=== PATIENT | male | born 1955 | race Caucasian/White ===

== ENCOUNTER 2021-02-24 13:40 | Observation (INO) ==
[2021-02-24 14:11] LABS: Basophils % 0.3 %; Eosinophils # 0.3 K/mcL (0.0-0.6); Eosinophils % 3.2 %; Hematocrit 45.5 % (37.5-50.1); Hemoglobin 15.1 g/dL (12.9-16.9); Immature Granulocytes % 0.3 % (0-4); Lymphocytes # 0.8 K/mcL (0.6-4.6); Lymphocytes % 7.9 %; Mean Corpuscular HGB Conc 33.2 g/dL (31.6-35.5); Mean Corpuscular Hemoglobin 29.4 pg (28.0-33.3); Mean Corpuscular Volume 88.7 fL (83.0-100.0); Mean Platelet Volume 10.9 fL (9.4-12.4); Monocytes # 0.7 K/mcL (0.0-1.3); Monocytes % 7.5 %; Neutrophils # 7.8 K/mcL (1.6-8.9); Platelet Count 196 K/mcL (140-400); Red Blood Count 5.13 M/mcL (4.19-5.50); Red Cell Distribution Width 11.9 % (11.5-14.5); Segmented Neutrophils % 80.8 %; White Blood Count 9.7 K/mcL (4.3-11.1)
[2021-02-24 14:30] LABS: BUN/Creatinine Ratio 14 (6-26); Blood Urea Nitrogen 19 mg/dL (8-23); Calcium 8.9 mg/dL (8.6-10.3); Carbon Dioxide 23 mEq/L (23-29); Chloride 103 mEq/L (98-107); Glucose 93 mg/dL (70-105); Osmolality,Calculated 286 (280-300); Potassium 4.2 mEq/L (3.5-5.1); Sodium 137 mEq/L (136-145); Troponin I < 0.03 ng/mL (< 0.04); eGFR For African Americans > 60 (> 60); eGFR For Non-African Americans 51 (> 60)
[2021-02-24] MEDS ORDERED: Isovue-370 500 ML BOTTLE IVP ONE (14:42)
[2021-02-24] MEDS ORDERED: 0.9 % Sodium Chloride 1,000 ML IVC ONE (14:43)
[2021-02-24] MEDS ORDERED: Aspirin 325 MG TABLET PO ONE (17:44)
[2021-02-24] MEDS ORDERED: Perflutren Lipid Microsphere 1.3 ML in 0.9 % Sodium Chloride 8.7 ML IVP PRN (20:00)
[2021-02-24] MEDS ORDERED: Acetaminophen IV 1,000 MG/100 ML BAG IVPB ONE (21:58)
[2021-02-24] MEDS ORDERED: Acetaminophen 325 MG TABLET PO PRN (22:37)
[2021-02-24] MEDS ORDERED: Naloxone 0.4 MG/ML INJ IVP PRN (22:37)
[2021-02-24] MEDS ORDERED: Ondansetron 4 MG/2 ML VIAL IVP PRN (22:37)
[2021-02-24] MEDS ORDERED: SUMAtriptan succinate 25 MG TABLET PO ONE (22:47)
[2021-02-24] MEDS ORDERED: Morphine Sulfate 2 MG/ML SYRINGE IVP ONE (22:56)
[2021-02-25] MEDS ORDERED: Morphine Sulfate 2 MG/ML SYRINGE IVP PRN (00:19)
[2021-02-25 02:33] LABS: Mean Corpuscular HGB Conc 33.8 g/dL (31.6-35.5); Mean Corpuscular Hemoglobin 29.5 pg (28.0-33.3); Mean Corpuscular Volume 87.3 fL (83.0-100.0); Mean Platelet Volume 11.1 fL (9.4-12.4); Platelet Count 194 K/mcL (140-400); Red Blood Count 4.58 M/mcL (4.19-5.50); Red Cell Distribution Width 11.9 % (11.5-14.5)
[2021-02-25 02:38] LABS: Hemoglobin 13.5 g/dL (12.9-16.9)
[2021-02-25 02:43] LABS: INR 1.1; Prothrombin Time 13.1 Seconds (9.4-12.1)
[2021-02-25 02:45] LABS: Activated Partial Thrombo Time 35.4 Seconds (26.0-36.0)
[2021-02-25 02:46] LABS: BUN/Creatinine Ratio 14 (6-26); Blood Urea Nitrogen 20 mg/dL (8-23); Calcium 8.3 mg/dL (8.6-10.3); Carbon Dioxide 25 mEq/L (23-29); Chloride 107 mEq/L (98-107); Cholesterol 188 mg/dL (< 200); Glucose 101 mg/dL (70-105); HDL Cholesterol 27 mg/dL (40-59); LDL Cholesterol,Calculated 147 mg/dL (< 100); Magnesium 1.9 mg/dL (1.6-2.6); Osmolality,Calculated 289 (280-300); Potassium 3.9 mEq/L (3.5-5.1); Sodium 138 mEq/L (136-145); Triglycerides 70 mg/dL (< 150); eGFR For African Americans > 60 (> 60); eGFR For Non-African Americans 50 (> 60)
[2021-02-25 02:59] LABS: Thyroid Stimulating Hormone 0.329 mcIU/mL (0.340-5.600)
[2021-02-25 03:10] LABS: Bilirubin,Urine Negative (Negative); Blood,Urine Negative (Negative); Clarity,Urine Clear (Clear); Color,Urine Colorless (Yellow); Glucose,Urine (UA) Normal (Normal); Ketones,Urine Negative (Negative); Leukocyte Esterase,Urine Negative (Negative); Nitrite,Urine Negative (Negative); PH,Urine 6.5 pH Units (5.0-8.0); Protein,Urine Negative (Neg-Trace); Urobilinogen,Urine Normal (Normal)
[2021-02-25 04:19] LABS: Estimated Average Glucose 117 mg/dl; Hemoglobin A1C 5.7 %
[2021-02-25] MEDS: *HR* Heparin 5,000 UNIT/ML VIAL SQ SCH ×2 (07:03→14:44)
[2021-02-25] MEDS ORDERED: Aspirin Enteric Coated 81 MG Tablet PO SCH (09:00)
[2021-02-25 11:38] VITALS: PULSE 65
[2021-02-25 16:20] VITALS: BP 151/82; TEMP 97.5; O2SAT 97
== END 2021-02-25 17:06 | disposition home or self-care (01) ==
LOC: EMEROOARM 13:40 → 3ANU 13:40 → SUATTDRO 17:58 → 3ANU 18:20
PROVIDERS: ADMIT Student in an Organized Health Care Education/Training Program; ATTEND General Practice